=== PATIENT | female | born 1970 | race Caucasian/White ===

== ENCOUNTER → 2020-01-06 14:01 | Outpatient (BNVA) | payer BC, SELFPAY | PROVIDERS: Visit Provider Nurse Practitioner Family | DX: J06.9 Acute upper respiratory infection, unspecified (principal); Z20.828 Contact with and (suspected) exposure to other viral communicable diseases | CPT/HCPCS: 87635 ==

== ENCOUNTER → 2022-06-28 09:20 | Outpatient (BNVA) | payer BC, SELFPAY | PROVIDERS: Visit Provider Nurse Practitioner Women's Health | DX: Z12.4 Encounter for screening for malignant neoplasm of cervix (principal); A60.00 Herpesviral infection of urogenital system, unspecified | CPT/HCPCS: 87624 ==

== ENCOUNTER 2022-07-13 08:16 | Outpatient (CLI) | payer BC, SELFPAY ==
--- NOTE | 2022-07-13 08:32 | MM_ITS ---
WS: [email or web address] SCREENING DIGITAL BREAST TOMOSYNTHESIS MAMMOGRAM WITH CAD HISTORY: SCREEN COMPARISON: None available. Bilateral CC and MLO with tomosynthesis and synthetic mammography submitted. Computer aided detection analyzed. Breast composition: The breasts are heterogeneously dense, which may obscure small masses. 7 mm asymm etry lateral LEFT breast seen on the CC projection. Benign calcifications. MM/[place] [id number] IMPRESSION: BI-RADS: 0-Incomplete: Need additional imaging evaluation FOLLOW UP: Need Additional Imaging LEFT breast: Spot compression views (CC and MLO). True ML. Ultrasound to follow if abnormality persists.
== END 2022-07-13 08:17 | disposition home or self-care (01) ==
PROVIDERS: PCP Nurse Practitioner Women's Health; Visit Provider Nurse Practitioner Women's Health
DX: Z12.31 Encounter for screening mammogram for malignant neoplasm of breast (principal)
CPT/HCPCS: 77063; 77067

== ENCOUNTER 2022-07-31 08:26 | Outpatient (CLI) | payer BC, SELFPAY ==
--- NOTE | 2022-07-31 08:33 | MM_ITS ---
WS: [email or web address] ADDITIONAL VIEWS LEFT MAMMOGRAM with tomosynthesis. LEFT BREAST ULTRASOUND HISTORY: ABNORMAL MAMMO COMPARISON: 07/13/2022 LEFT MAMMOGRAM: Spot compression views and true ML with tomosynthesis and sympathetic mammography. Nodule persists in the lateral LEFT breast which is probably just above the nipple line. This is not definitely visualized on the lateral projection. LEFT BREAST ULTRASOUND 2-D and color Doppler imaging submitted. Hypoechoic mass is well-circumscribed with no shadowing or increased vascularity at 2:00, 2 cm from t he nipple. This corresponds in size and location to the mammographic abnormality. There is very dense fibroglandular tissue. MM/[place] [id number] IMPRESSION: BI-RADS: 3-Probably Benign FOLLOW UP: 6 Month Follow-up Recommend LEFT breast ultrasound follow-up in 6 months to reevaluate the hypoec hoic mass at 2:00. Favor benign. Ultrasound-guided biopsy can be performed if p jessica prefers.
== END 2022-07-31 08:27 | disposition home or self-care (01) ==
PROVIDERS: PCP Nurse Practitioner Women's Health; Visit Provider Nurse Practitioner Women's Health
DX: R92.8 Other abnormal and inconclusive findings on diagnostic imaging of breast (principal)
CPT/HCPCS: 76642; 77061; 87491; 87591; 87661; G0279

== ENCOUNTER → 2022-11-15 12:00 | Outpatient (BNVA) | payer BC, SELFPAY | PROVIDERS: PCP Nurse Practitioner Women's Health; Visit Provider Nurse Practitioner Family | DX: F32.A Depression, unspecified (principal); R53.83 Other fatigue | CPT/HCPCS: 80053; 80061; 82306; 82607; 82746; 83550; 84443 ==

== ENCOUNTER 2023-01-31 08:30 | Outpatient (CLI) | payer BC, SELFPAY ==
--- NOTE | 2023-01-31 08:45 | US_ITS ---
WS: [email or web address] ULTRASOUND LEFT BREAST HISTORY: 6-month follow-up LEFT breast mass. COMPARISON: 07/31/2022 TECHNIQUE: 2-D and Doppler. Hypoechoic areas reidentified within the LEFT breast at 2:00, 2 cm from the nipple. Hypoechoic area m easures 5 x 5 x 4 mm with no increase in size since 07/31/2022. There is also no increased vascularity . IMPRESSION: US/US breast LT limited* [id number] BI-RADS: 3-Probably Benign FOLLOW-UP: 6 Month Follow-up Patient to return in July 2023 for bilateral annual mammogram. LEFT breast ult rasound should be performed to document continued stability of the LEFT breast mass.
== END 2023-01-31 08:31 | disposition home or self-care (01) ==
PROVIDERS: PCP Nurse Practitioner Women's Health; Visit Provider Nurse Practitioner Women's Health
DX: N63.21 Unspecified lump in the left breast, upper outer quadrant (principal); R92.8 Other abnormal and inconclusive findings on diagnostic imaging of breast
CPT/HCPCS: 76642

== ENCOUNTER → 2023-07-02 11:00 | Outpatient (BNVA) | payer BC, SELFPAY | PROVIDERS: PCP Nurse Practitioner Women's Health; Visit Provider Nurse Practitioner Women's Health | DX: Z01.419 Encounter for gynecological examination (general) (routine) without abnormal findings (principal) | CPT/HCPCS: 87624 ==

== ENCOUNTER → 2023-08-02 11:47 | Outpatient (BNVA) | payer BC, SELFPAY | PROVIDERS: PCP Nurse Practitioner Women's Health; Visit Provider Nurse Practitioner Family | DX: F32.A Depression, unspecified (principal); E03.9 Hypothyroidism, unspecified; E55.9 Vitamin D deficiency, unspecified; M54.31 Sciatica, right side; R53.83 Other fatigue; E04.9 Nontoxic goiter, unspecified; F33.0 Major depressive disorder, recurrent, mild | CPT/HCPCS: 80053; 80061; 84443; 85025 ==

== ENCOUNTER 2023-08-05 08:48 | Outpatient (CLI) | payer BC, SELFPAY ==
--- NOTE | 2023-08-05 09:00 | MM_ITS ---
WS: [email or web address] DIAGNOSTIC BILATERAL DIGITAL BREAST TOMOSYNTHESIS MAMMOGRAPHY WITH CAD LEFT breast ultrasound, limited HISTORY: Follow-up indeterminate mass LEFT breast. COMPARISON: 07/13/2022, 07/31/2022 TECHNIQUE: Bilateral craniocaudad, mediolateral oblique, and mediolateral views are submitted with to mosynthesis and SM. Spot compression LEFT CC and MLO. Computer aided detection utilized. Breast composition: The breasts are heterogeneously dense, which may obscure small masses. Benign ellis cifications upper outer quadrant LEFT breast. Asymmetries are stable. The mass described at 2:00 is n ot as well visualized today. Ultrasound to follow. No distortion. LEFT breast ultrasound, limited. Hypoechoic mass persists in the LEFT breast at 2:00 measuring 0.5 x 0.6 x 0.4 cm. There is no through transmission and this is not a simple cyst. No significant increase in size. No increased vascularit y. IMPRESSION: MM/[place] [id number] BI-RADS: 4-Suspicious Finding-Biopsy Should Be Considered FOLLOW UP: Biopsy Recommended Ultrasound-guided biopsy is recommended of the solid mass in the LEFT breast at 2:00. Mass has not significantly increased in size but is not a simple cyst or complex cyst and it has not resolved therefore suggest biopsy at this time.
--- NOTE | 2023-08-05 09:30 | US_ITS ---
WS: [email or web address] DIAGNOSTIC BILATERAL DIGITAL BREAST TOMOSYNTHESIS MAMMOGRAPHY WITH CAD LEFT breast ultrasound, limited HISTORY: Follow-up indeterminate mass LEFT breast. COMPARISON: 07/13/2022, 07/31/2022 TECHNIQUE: Bilateral craniocaudad, mediolateral oblique, and mediolateral views are submitted with to mosynthesis and SM. Spot compression LEFT CC and MLO. Computer aided detection utilized. Breast composition: The breasts are heterogeneously dense, which may obscure small masses. Benign ellis cifications upper outer quadrant LEFT breast. Asymmetries are stable. The mass described at 2:00 is n ot as well visualized today. Ultrasound to follow. No distortion. LEFT breast ultrasound, limited. Hypoechoic mass persists in the LEFT breast at 2:00 measuring 0.5 x 0.6 x 0.4 cm. There is no through transmission and this is not a simple cyst. No significant increase in size. No increased vascularit y. IMPRESSION: US/US breast LT limited* [id number] BI-RADS: 4-Suspicious Finding-Biopsy Should Be Considered FOLLOW UP: Biopsy Recommended Ultrasound-guided biopsy is recommended of the solid mass in the LEFT breast at 2:00. Mass has not significantly increased in size but is not a simple cyst or complex cyst and it has not resolved therefore suggest biopsy at this time.
== END 2023-08-05 08:49 | disposition home or self-care (01) ==
LOC: RAD 08:49
PROVIDERS: PCP Nurse Practitioner Women's Health; Visit Provider Nurse Practitioner Women's Health
DX: R92.8 Other abnormal and inconclusive findings on diagnostic imaging of breast (principal); N63.23 Unspecified lump in the left breast, lower outer quadrant
CPT/HCPCS: 76642; 77062; G0279

== ENCOUNTER 2023-08-21 10:30 | Outpatient (CLI) | payer BC, SELFPAY ==
--- NOTE | 2023-08-21 10:42 | US_ITS ---
WS: [email or web address] THYROID ULTRASOUND HISTORY: Goiter COMPARISON: None. Right lobe: 4.0 cm x 3.1 cm x 6.2 cm (w x ap x l). Volume: 36.6 cm3. Markedly enlarged heterogeneous thyroid. There is increased vascularity throughout the gland. Very he terogeneous gland. There is no discrete nodule for which biopsy can be recommended. Left lobe: 1.7 cm x 2.0 cm x 4.6 cm (w x ap x l). Volume: 7.8 cm3. Mildly enlarged gland with heterogeneity. No discrete nodule. Mild increased vascularity. Isthmus: 0.6 cm. US/US thyroid [id number] IMPRESSION: 1. Abnormal thyroid gland. 2. RIGHT thyroid is markedly enlarged and heterogeneous and nodular. There is no discrete nodule for which biopsy should be recommended. Most likely multinod ular goiter. 3. Mild heterogeneity and enlargement of the LEFT thyroid. No nodule.
--- NOTE | 2023-08-21 11:45 | US_ITS ---
WS: [email or web address] ULTRASOUND-GUIDED LEFT BREAST BIOPSY HISTORY: Indeterminate mass LEFT breast at 2:00. COMPARISON: 08/05/2023, 01/31/2023 Procedure, risks and complications are explained to the patient. Medications are reviewed. Consent is obtained. The mass in the LEFT breast is localized with ultrasound. Mass is identified at 2:00, 2 cm from the n ipple. Skin is cleansed with ChloraPrep and anesthetized with 1% buffered lidocaine. Small dermatome is made. Under sterile conditions mass is biopsied with a 14-gauge Achieve needle. Multiple core biop sies are performed. Material placed in formalin and sent to pathology for review. No complications en countered. Breast tissue marker (Bard ultrasound enhanced ribbon): Single. Patient left the radiology suite with no complications. Patient is instructed to return to [facility] or [facility] with any concerns. US/[place] [id number] IMPRESSION: 1. Uncomplicated core needle biopsy hypoechoic mass LEFT breast at 2:00. PATHOLOGY: Changes consistent with benign fibroadenoma. Negative for malignancy . RECOMMENDATION: Ultrasound follow-up 6 months, LEFT breast at 2:00. This will d etermine continued stability.
== END 2023-08-21 10:31 | disposition home or self-care (01) ==
LOC: RAD 10:30
PROVIDERS: PCP Nurse Practitioner Women's Health; Visit Provider Nurse Practitioner Family
DX: N63.20 Unspecified lump in the left breast, unspecified quadrant (principal); R92.8 Other abnormal and inconclusive findings on diagnostic imaging of breast; D24.2 Benign neoplasm of left breast; E03.9 Hypothyroidism, unspecified; E04.9 Nontoxic goiter, unspecified
CPT/HCPCS: 19083; 76536; 88305

== ENCOUNTER → 2023-08-28 07:46 | Outpatient (BNVA) | payer BC, SELFPAY | PROVIDERS: PCP Nurse Practitioner Women's Health; Visit Provider Obstetrics & Gynecology | DX: R87.612 Low grade squamous intraepithelial lesion on cytologic smear of cervix (LGSIL) (principal) | CPT/HCPCS: 81025; 88305 ==